=== PATIENT | male | born 1995 | race Caucasian/White ===

== ENCOUNTER 2022-07-22 12:10 | Emergency (ER) | payer MEDICAID ==
[~2022-07-22] VITALS: Ht 188 cm; Wt 109.1 kg
[2022-07-22 13:36] VITALS: BP 120/67
[2022-07-22] MEDS ORDERED: cyclobenzaprine 10mg tablet PO ONE (15:25)
[2022-07-22] MEDS ORDERED: ketorolac trometh. 30mg/ml inj. IM ONE (15:25)
[2022-07-22] MEDS ORDERED: CYCL-1 PO (15:51)
[2022-07-22] MEDS ORDERED: IBUP-1984 PO (15:51)
== END 2022-07-22 16:17 | disposition home or self-care (01) ==
LOC: ER 12:11
DX: S29.012A Strain of muscle and tendon of back wall of thorax, initial encounter (principal); X58.XXXA Exposure to other specified factors, initial encounter; Y93.89 Activity, other specified; Y92.89 Other specified places as the place of occurrence of the external cause; Y99.8 Other external cause status
CPT/HCPCS: 96372; 99283; J1885

== ENCOUNTER 2024-06-07 18:25 | Emergency (ER) | payer MEDICAID ==
[~2024-06-07] VITALS: Ht 185.4 cm; Wt 127.3 kg
[~2024-06-07 18:25] MED LIST: CYCL-1 PO
[2024-06-07 20:01] VITALS: BP 150/86; PULSE 99; RESP 18; TEMP 98.6; O2SAT 99
== END 2024-06-07 20:02 | disposition home or self-care (01) ==
LOC: ER 18:26
DX: S93.401A Sprain of unspecified ligament of right ankle, initial encounter (principal); S96.911A Strain of unspecified muscle and tendon at ankle and foot level, right foot, initial encounter; W18.40XA Slipping, tripping and stumbling without falling, unspecified, initial encounter; Y93.01 Activity, walking, marching and hiking; Y92.89 Other specified places as the place of occurrence of the external cause; Y99.8 Other external cause status
CPT/HCPCS: 73610; 73630; 99284; A6449